=== PATIENT | female | born 1935 | race Caucasian/White ===

== ENCOUNTER 2022-04-28 21:44 | Inpatient (IN) | payer MEDICARE ==
[~2022-04-28] VITALS: Ht 162.6 cm; Wt 80.1 kg
[2022-04-29 06:28] LABS: HEMOGLOBIN 11.5 gm/dl (12.3-15.3); RED BLOOD COUNT 3.66 M/UL (4.00-5.10)
[2022-04-29] MEDS ORDERED: VASOTEC 5 MG TAB5 MG PO (08:07)
[2022-04-29] MEDS ORDERED: LEVEMIR100 UNIT/1 SQ (08:08)
[2022-04-29] MEDS ORDERED: LOPRESSOR 50 MG50 MG PO (08:08)
[2022-04-29] MEDS ORDERED: PROTONIX 40 MG40 M1 PO (08:09)
[2022-04-29] MEDS ORDERED: METFORMIN HCL1000 MG PO (08:10)
[2022-04-29] MEDS ORDERED: LORAZEPAM0.5 MG PO (08:10)
[2022-04-29] MEDS ORDERED: TRAMADOL HCL50 MG PO (08:10)
[2022-04-29] MEDS ORDERED: TORSEMIDE100 MG PO (08:11)
[2022-04-29] MEDS ORDERED: AMLODIPINE BESYL5 MG PO (08:11)
[2022-04-29] MEDS ORDERED: ZOCOR 40 MG TAB40 MG PO (08:14)
[2022-04-29] MEDS ORDERED: GABAPENTIN300 MG PO (08:14)
[2022-04-29] MEDS ORDERED: MAGNESIUM500 MG PO (08:15)
[2022-04-29] MEDS ORDERED: VAZALORE81 MG PO (08:15)
--- NOTE | 2022-04-29 12:29 | NUR ---
PT SIGNED CONSENT FOR ANGIOGRAM WITH FULL UNDERSTANDING OF THE PROCEDURE.
== END 2022-04-29 18:38 | DRG 282 ==
LOC: PROG CARE 21:44
PROVIDERS: ADMIT Internal Medicine
PROC: 4A023N7 Measurement of Cardiac Sampling and Pressure, Left Heart, Percutaneous Approach (ICD-10-PCS; principal; 2022-04-29)
PROC: B2111ZZ Fluoroscopy of Multiple Coronary Arteries using Low Osmolar Contrast (ICD-10-PCS; 2022-04-29)
PROC: B24BZZZ Ultrasonography of Heart with Aorta (ICD-10-PCS; 2022-04-29)
DX: I21.4 Non-ST elevation (NSTEMI) myocardial infarction (principal); I16.0 Hypertensive urgency; E03.9 Hypothyroidism, unspecified; Z20.822 Contact with and (suspected) exposure to COVID-19; M10.9 Gout, unspecified; I45.10 Unspecified right bundle-branch block; I44.0 Atrioventricular block, first degree; D63.1 Anemia in chronic kidney disease; E66.9 Obesity, unspecified; N18.30 Chronic kidney disease, stage 3 unspecified; I12.9 Hypertensive chronic kidney disease with stage 1 through stage 4 chronic kidney disease, or unspecified chronic kidney disease; E11.22 Type 2 diabetes mellitus with diabetic chronic kidney disease; I08.1 Rheumatic disorders of both mitral and tricuspid valves; F41.9 Anxiety disorder, unspecified; E11.40 Type 2 diabetes mellitus with diabetic neuropathy, unspecified; Z79.01 Long term (current) use of anticoagulants; Z79.82 Long term (current) use of aspirin; Z79.4 Long term (current) use of insulin; Z95.5 Presence of coronary angioplasty implant and graft; Z85.038 Personal history of other malignant neoplasm of large intestine; Z90.49 Acquired absence of other specified parts of digestive tract; Z90.710 Acquired absence of both cervix and uterus; Z82.49 Family history of ischemic heart disease and other diseases of the circulatory system; Z68.30 Body mass index [BMI] 30.0-30.9, adult
CPT/HCPCS: ECHO; 36415; 71046; 80048; 80061; 82550; 82553; 82962; 84484; 85025; 85730; 93005; 93306; 99152; 99153; C1769; C1887; C1894; J0461; J1644; J2250; J3010; J7040; Q9965